=== PATIENT | female | born 1990 | race American Indian/Alaskan Native ===

== ENCOUNTER 2018-07-03 22:16 | Emergency (ER) | payer MEDICAID, OTHER ==
[2018-07-03 22:49] VITALS: BP 109/67
[2018-07-04] MEDS ORDERED: PERCOCET 5/325 PO ONE (02:55)
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
== END 2018-07-04 04:10 | disposition home or self-care (01) ==
LOC: ED 22:16
DX: M54.9 Dorsalgia, unspecified (principal); V89.2XXA Person injured in unspecified motor-vehicle accident, traffic, initial encounter; Y93.89 Activity, other specified; Y92.488 Other paved roadways as the place of occurrence of the external cause; Y99.8 Other external cause status
CPT/HCPCS: 72100; 99283